=== PATIENT | female | born 1985 | race Asian ===

== ENCOUNTER 2019-02-23 15:40 | Outpatient (CLI) | payer OTHER ==
[2019-02-23 16:16] LABS: BASOPHILS % (AUTO) 0.5 % (0.0-2.0); EOSINOPHILS # (AUTO) 0.1 K/uL (0.0-0.4); EOSINOPHILS % (AUTO) 0.8 % (0.0-4.0); HEMATOCRIT 36.9 % (36-48); HEMOGLOBIN 12.6 g/dL (12.0-16.0); LYMPHOCYTES # (AUTO) 1.4 K/uL (1.0-5.5); LYMPHOCYTES % (AUTO) 14.2 % (20.5-51.5); MEAN CORPUSCULAR HEMOGLOBIN 31 pg (27-31); MEAN CORPUSCULAR HGB CONC 34 % (32-36); MEAN CORPUSCULAR VOLUME 92 fL (79.0-98.0); MONOCYTES # (AUTO) 0.7 K/uL (0.0-1.0); MONOCYTES % (AUTO) 6.8 % (1.7-9.3); NEUTROPHILS # (AUTO) 7.5 K/uL (1.8-7.7); NEUTROPHILS % (AUTO) 77.7 % (40.0-70.0); PLATELET COUNT (AUTO) 239 K/uL (130-430); RED BLOOD CELL COUNT(AUTO) 4.02 MIL/uL (4.2-6.2); RED CELL DISTRIBUTION WIDTH 13.3 % (9.0-15.0); WHITE BLOOD COUNT (AUTO) 9.6 K/uL (4.8-10.8)
[2019-02-23 16:19] LABS: ALBUMIN 2.5 g/dL (3.4-4.8); CALCIUM 9.2 mg/dL (8.4-11.0); CREATININE 0.74 mg/dL (0.55-1.30); POTASSIUM 3.7 mmol/L (3.5-5.1); TOTAL BILIRUBIN 0.4 mg/dL (0.0-1.0)
== END 2019-02-23 16:30 | disposition home or self-care (01) ==
LOC: SLB 15:40
PROVIDERS: ATTEND Obstetrics & Gynecology
DX: Z39.1 Encounter for care and examination of lactating mother (principal)
CPT/HCPCS: 36415; 80053; 85025

== ENCOUNTER 2019-03-11 11:19 | Inpatient (IN) | payer OTHER ==
[~2019-03-11] VITALS: Ht 149.9 cm; Wt 55.3 kg
[2019-03-11] MEDS ORDERED: NALBUPHINE HCL 10 MG/ML AMP IVP PRN (18:30)
[2019-03-11 18:45] VITALS: BP_SYST 143
[2019-03-11] MEDS ORDERED: AMPICILLIN SODIUM 2 GM in NS 100 ML IV ONE (19:00)
[2019-03-11 19:13] LABS: BASOPHILS % (AUTO) 0.4 % (0.0-2.0); EOSINOPHILS # (AUTO) 0.1 K/uL (0.0-0.4); EOSINOPHILS % (AUTO) 1.1 % (0.0-4.0); HEMATOCRIT 34.8 % (36-48); HEMOGLOBIN 12.2 g/dL (12.0-16.0); LYMPHOCYTES # (AUTO) 1.5 K/uL (1.0-5.5); LYMPHOCYTES % (AUTO) 14.8 % (20.5-51.5); MEAN CORPUSCULAR HEMOGLOBIN 32 pg (27-31); MEAN CORPUSCULAR HGB CONC 35 % (32-36); MEAN CORPUSCULAR VOLUME 91 fL (79.0-98.0); MONOCYTES # (AUTO) 0.6 K/uL (0.0-1.0); MONOCYTES % (AUTO) 5.9 % (1.7-9.3); NEUTROPHILS # (AUTO) 7.8 K/uL (1.8-7.7); NEUTROPHILS % (AUTO) 77.8 % (40.0-70.0); PLATELET COUNT (AUTO) 251 K/uL (130-430); RED BLOOD CELL COUNT(AUTO) 3.81 MIL/uL (4.2-6.2); RED CELL DISTRIBUTION WIDTH 13.8 % (9.0-15.0)
[2019-03-11] MEDS: LR 1,000 ML IV SCH ×2 (20:10→22:22)
[2019-03-11] MEDS: OXYTOCIN/0.9 % SODIUM CHLORIDE 1,000 ML IV SCH (20:50)
[2019-03-11] MEDS ORDERED: PANTOPRAZOLE SODIUM 40 MG TAB PO PRN (21:00)
[2019-03-11] MEDS: ACETAMINOPHEN 325 MG TABLET PO PRN (22:22)
[2019-03-11] MEDS ORDERED: AMPICILLIN SODIUM 2 GM VIAL ONE ×2 (22:25→22:41)
[2019-03-12] MEDS ORDERED: AMPICILLIN SODIUM 1 GM VIAL ONE ×2 (02:15→06:49)
[2019-03-12] MEDS: AMPICILLIN SODIUM 1 GM in NS 50 ML IV SCH ×5 (02:21→23:22)
[2019-03-12] MEDS: LR 1,000 ML IV SCH ×3 (08:23→20:55)
[2019-03-12] MEDS ORDERED: FENT2mCg/mL-ROPIVA0.2%/NS EPID 150 ML EP SCH (10:15)
[2019-03-12] MEDS ORDERED: fentaNYL CITRATE/PF 100 MCG/2 ML AMP ONE (10:16)
[2019-03-12] MEDS ORDERED: ROPIVACAINE HCL/PF 0.2% 200 ML ONE (10:17)
[2019-03-12] MEDS: OXYTOCIN/0.9 % SODIUM CHLORIDE 1,000 ML IV SCH (16:00)
[2019-03-12] MEDS ORDERED: METOCLOPRAMIDE HCL 10 MG/2 ML VIAL IVP SCH (20:30)
[2019-03-12] MEDS: ONDANSETRON HCL 4 MG/2 ML VIAL IVP PRN (20:55)
[2019-03-12] MEDS ORDERED: OXYTOCIN 10 UNIT/ML VIAL IM ONE (23:00)
[2019-03-13] MEDS: ONDANSETRON HCL 4 MG/2 ML VIAL IVP PRN (01:14)
[2019-03-13] MEDS: ACETAMINOPHEN 325 MG TABLET PO PRN (02:20)
[2019-03-13] MEDS: AMPICILLIN SODIUM 1 GM in NS 50 ML IV SCH (03:21)
[2019-03-13] MEDS ORDERED: LR 1,000 ML IV SCH (04:33)
[2019-03-13] MEDS ORDERED: CEFAZOLIN 2 GM IVPB PREMIX 50 ML IV ONE (04:45)
[2019-03-13] MEDS ORDERED: ceFAZolin SODIUM 1 GM VIAL ONE (05:40)
[2019-03-13] MEDS ORDERED: CEFAZOLIN 1 GM IVPB PREMIX 50 ML IV ONE (05:42)
[2019-03-13] MEDS ORDERED: KETOROLAC TROMETHAMINE 60 MG/2 ML VIAL IM PRN (05:45)
[2019-03-13] MEDS ORDERED: MORPHINE SULFATE 10MG/10ML PF AMP EP SCH (05:45)
[2019-03-13] MEDS ORDERED: fentaNYL CITRATE/PF 100 MCG/2 ML AMP IVP PRN ×2 (05:45)
[2019-03-13] MEDS ORDERED: NALBUPHINE HCL 10 MG/ML AMP IVP PRN (05:45)
[2019-03-13] MEDS ORDERED: DIPHENHYDRAMINE INJ 50 MG/ML VIAL IVP PRN (05:45)
[2019-03-13] MEDS ORDERED: ONDANSETRON HCL 4 MG/2 ML VIAL IVP PRN (05:45)
[2019-03-13] MEDS ORDERED: NALOXONE HCL 0.4 MG/ML AMP (NARCAN) IVP PRN ×2 (05:45)
[2019-03-13] MEDS ORDERED: METHYLERGONOVINE MALEATE 0.2 MG/ML AMP ONE (05:49)
[2019-03-13 05:57] VITALS: BP_SYST 138
[2019-03-13] MEDS ORDERED: ONDANSETRON HCL 4 MG/2 ML VIAL ONE (06:15)
[2019-03-13] MEDS ORDERED: fentaNYL CITRATE/PF 100 MCG/2 ML AMP ONE (06:33)
[2019-03-13] MEDS: PIPERACILLIN/TAZO 3.375/DEX-IS 50 ML IV SCH ×3 (12:04→23:54)
[2019-03-13] MEDS ORDERED: TEMAZEPAM 15 MG CAPSULE PO PRN (21:00)
[2019-03-13] MEDS ORDERED: DOCUSATE SODIUM 100 MG CAPSULE PO PRN (21:15)
[2019-03-13] MEDS ORDERED: LANOLIN 7 GM OINT. TP PRN (21:15)
[2019-03-13] MEDS ORDERED: OXYCODONE/ACETAMINOPHEN 5-325 TABLET PO PRN ×2 (21:15)
[2019-03-13] MEDS ORDERED: MEASLES,MUMPS&RUBELLA VACC/PF 12500 UNIT/0.5 ML VIAL SUBQ PRN (21:15)
[2019-03-13] MEDS ORDERED: DIPH-TET-PERTUS Vaccine 0.5 ML VIAL (ADACEL) I.M. PRN (21:15)
[2019-03-13] MEDS ORDERED: HYDROcodone/ACETAMIN 5-325 MG TAB (NORCO/ VICODIN) PO PRN (21:15)
[2019-03-14] MEDS: SIMETHICONE 80 MG TAB.CHEW PO PRN (06:01)
[2019-03-14] MEDS: IBUPROFEN 600 MG TABLET PO SCH ×3 (06:01→18:07)
[2019-03-14 06:23] LABS: BASOPHILS # (AUTO) 0.1 K/uL (0.0-0.2); BASOPHILS % (AUTO) 0.6 % (0.0-2.0); EOSINOPHILS # (AUTO) 0.1 K/uL (0.0-0.4); EOSINOPHILS % (AUTO) 0.8 % (0.0-4.0); HEMATOCRIT 28.7 % (36-48); HEMOGLOBIN 9.9 g/dL (12.0-16.0); LYMPHOCYTES # (AUTO) 1.4 K/uL (1.0-5.5); LYMPHOCYTES % (AUTO) 8.2 % (20.5-51.5); MEAN CORPUSCULAR HEMOGLOBIN 32 pg (27-31); MEAN CORPUSCULAR HGB CONC 35 % (32-36); MEAN CORPUSCULAR VOLUME 93 fL (79.0-98.0); MONOCYTES # (AUTO) 0.8 K/uL (0.0-1.0); MONOCYTES % (AUTO) 4.8 % (1.7-9.3); NEUTROPHILS # (AUTO) 14.2 K/uL (1.8-7.7); NEUTROPHILS % (AUTO) 85.6 % (40.0-70.0); PLATELET COUNT (AUTO) 194 K/uL (130-430)
[2019-03-14 07:06] LABS: WHITE BLOOD COUNT (AUTO) 16.6 K/uL (4.8-10.8)
[2019-03-15] MEDS: IBUPROFEN 600 MG TABLET PO SCH ×2 (00:04→06:21)
[2019-03-15] MEDS: SIMETHICONE 80 MG TAB.CHEW PO PRN ×2 (00:04→06:22)
[2019-03-15] MEDS ORDERED: FLU VACC QS2019-20 36MOS UP/PF 60 MCG/0.5 ML SYRINGE I.M. ONE (14:54)
== END 2019-03-15 16:32 | disposition home or self-care (01) | DRG 788 ==
LOC: SPU 17:50
PROVIDERS: ADMIT Obstetrics & Gynecology; ATTEND Obstetrics & Gynecology
PROC: 3E033VJ Introduction of Other Hormone into Peripheral Vein, Percutaneous Approach (ICD-10-PCS; 2019-03-13)
PROC: 10D00Z1 Extraction of Products of Conception, Low, Open Approach (ICD-10-PCS; principal; 2019-03-13 05:00)
DX: O62.2 Other uterine inertia (principal); O69.81X0 Labor and delivery complicated by cord around neck, without compression, not applicable or unspecified; O99.824 Streptococcus B carrier state complicating childbirth; Z37.0 Single live birth; Z3A.39 39 weeks gestation of pregnancy
CPT/HCPCS: 36415; 81002-TC; 85025; 86592; 86886; 86900; 86901; 90715; 94760; J0290; J0690; J1885; J2210; J2300; J2405; J2543; J2590; J3010